=== PATIENT | female | born 1945 | race Two or more races ===

== ENCOUNTER 2020-03-24 09:47 | Inpatient (IN) | payer OTHER ==
[~2020-03-24] VITALS: Ht 160 cm; Wt 106.3 kg
[2020-03-24 10:41] LABS: Basophils # (auto) 0.1 10 ^3/uL (0-0.2); Basophils % (auto) 0.7 % (0.0-2.0); Eosinophils # (auto) 0.1 10 ^3/uL (0-0.8); Eosinophils % (auto) 0.6 % (0.0-7.0); Hematocrit 30.8 % (36.0-46.0); Lymphocytes # (auto) 3.8 10 ^3/uL (0.4-5.4); Lymphocytes % (auto) 36.7 % (10.0-50.0); Mean Corpuscular Hemoglobin 30.1 pg (28.0-32.0); Mean Corpuscular Hgb Conc. 32.4 g/dL (32.0-36.0); Monocytes # (auto) 0.3 10 ^3/uL (0-1.3); Monocytes % (auto) 2.5 % (0.0-12.0); Neutrophils # (auto) 6.2 10 ^3/uL (1.6-8.6); Neutrophils % (auto) 59.5 % (37.0-80.0); Nucleated Red Blood Cells % 0.8 %; Red Blood Cells 3.32 10^6/uL (4.0-5.20); Red Cell Distribution Width 14.9 % (11.8-14.3); White Blood Cell 10.4 10^3/uL (4.4-10.8)
[2020-03-24] MEDS ORDERED: SODIUM BICARBONATE 8.4% INJ 50ML SYRINGE ONE (10:54)
[2020-03-24 11:36] LABS: BUN/Creatinine Ratio 11.9; Calcium 7.3 mg/dL (8.5-10.1); Potassium 3.9 mmol/L (3.5-5.1)
[2020-03-24 11:53] LABS: Magnesium 2.2 mg/dL (1.6-2.6)
[2020-03-24] MEDS ORDERED: MIDAZOLAM DRIP 50 mg/50mL 50 ML IV ONE ×2 (12:23→12:28)
[2020-03-24] MEDS ORDERED: fentaNYL Drip 2500mCg/250mlNS 250 ML IV ONE (12:28)
[2020-03-24] MEDS: NOREPINEPHRINE 8 MG/250ML KIT 250 ML IV SCH (12:45)
[2020-03-24] MEDS: fentaNYL Drip 2500mCg/250mlNS 250 ML IV SCH (12:45)
[2020-03-24] MEDS: MIDAZOLAM DRIP 50 mg/50mL 50 ML IV SCH ×2 (12:45→15:00)
[2020-03-24] MEDS ORDERED: CEFEPIME 2 GM in SODIUM CHL 0.9% 50 ML IV ONE (13:30)
[2020-03-24] MEDS ORDERED: SODIUM CHLORIDE 0.9% 2,000 ML IV ONE (13:30)
[2020-03-24] MEDS ORDERED: CALCIUM GLUC 4.65meq/50ml D5AE 50 ML IV ONE (13:30)
[2020-03-24] MEDS ORDERED: InsuLIN REG 1unit/0.01ml Soln (100units/ml) IV ONE ×3 (13:30→18:00)
[2020-03-24] MEDS ORDERED: AZITHROMYCIN 500MG/ 250ML 250 ML IV ONE (13:30)
[2020-03-24 13:36] VITALS: BP 119/34
[2020-03-24 13:49] LABS: INR 1.18 (0.9-1.15); Partial Thromboplastin Time 27.1 sec (23.0-31.2)
[2020-03-24] MEDS ORDERED: SODIUM BICARB 50ML SYR 50 ML in SODIUM CHLORIDE 0.9% 1,000 ML IV ONE (14:30)
[2020-03-24 14:46] LABS: Lactic Acid w/Reflex 2.7 mmol/L (0.4-2.0)
[2020-03-24] MEDS: ACCU-CHEK COMFORT CURVE STRIP VI SCH ×7 (16:33→23:40)
[2020-03-24] MEDS ORDERED: MORPHINE SULFATE INJECTION 2 MG/ML SYRG IV PRN ×2 (17:00→18:30)
[2020-03-24] MEDS ORDERED: NITROGLYCERIN 0.4 MG SL TAB SL PRN (17:00)
[2020-03-24 18:20] VITALS: BP 113/43
[2020-03-24] MEDS ORDERED: DEXTROSE (50%) 50ML SYRG IV PRN ×2 (18:30)
[2020-03-24] MEDS ORDERED: REMDESIVIR PER PHARMACY 0 ML IV SCH (18:30)
[2020-03-24] MEDS ORDERED: diphenhdrAMINE HCL 50 MG/1 ML VL IV PRN (18:30)
[2020-03-24] MEDS: SODIUM CHLORIDE 0.9% 1,000 ML IV SCH (18:30)
[2020-03-24] MEDS ORDERED: PROMETHAZINE HCL 25 MG/ML 1ML IV PRN (18:30)
[2020-03-24] MEDS ORDERED: ALBUTEROL SULF HFA 90MCG INH 200DOSE IN PRN (18:30)
[2020-03-24] MEDS ORDERED: levoFLOXacin 500MG 100 ML IV ONE (20:30)
[2020-03-24] MEDS ORDERED: ACETAMINOPHEN 650 MG RECT SUPP PR PRN ×2 (21:15→22:45)
[2020-03-24 21:59] LABS: Lactic Acid w/Reflex 3.1 mmol/L (0.4-2.0)
[2020-03-24] MEDS: ENOXAPARIN SOD 40 MG/0.4 ML SYRINGE SC SCH (22:00)
[2020-03-24] MEDS ORDERED: BUDESONIDE (INHALATION) 180 MCG IH IN SCH (22:00)
[2020-03-24] MEDS ORDERED: InsuLIN REG 1unit/0.01ml Soln (100units/ml) SC SCH (22:00)
[2020-03-24] MEDS ORDERED: ENOXAPARIN SOD 40 MG/0.4 ML SYRINGE SC SCH (22:00)
[2020-03-24] MEDS: CLINDAMYCIN 600MG IV 50 ML IV SCH (22:14)
[2020-03-24] MEDS: INSULIN LANTUS (GLARGINE) 1 /0.01ml (100units/ml) SC SCH (22:22)
[2020-03-24 22:50] VITALS: BP 140/57
[2020-03-24 22:55] LABS: Urine Bacteria NONE SEEN /hpf (None Seen); Urine Blood TRACE /uL (Negative); Urine Specific Gravity 1.014 (1.001-1.035); Urine WBC 1 /hpf (0 - 5)
[2020-03-24] MEDS: FAMOTIDINE (10MG/ML) 2ML VL IV SCH (23:23)
[2020-03-24] MEDS: InsuLIN REG 1unit/0.01ml Soln (100units/ml) SC SCH (23:41)
[2020-03-25] VITALS (77 sets, daily range): BP systolic 68–172; BP diastolic 30–69
[2020-03-25] MEDS: SODIUM CHLORIDE 0.9% 1,000 ML IV SCH ×3 (02:30→18:30)
[2020-03-25] MEDS: MIDAZOLAM DRIP 50 mg/50mL 50 ML IV SCH ×2 (04:10→10:25)
[2020-03-25] MEDS: NOREPINEPHRINE 8 MG/250ML KIT 250 ML IV SCH ×2 (04:10→20:15)
[2020-03-25] MEDS: CLINDAMYCIN 600MG IV 50 ML IV SCH ×3 (05:47→22:35)
[2020-03-25] MEDS: InsuLIN REG 1unit/0.01ml Soln (100units/ml) SC SCH ×3 (05:47→18:00)
[2020-03-25] MEDS: INSULIN LANTUS (GLARGINE) 1 /0.01ml (100units/ml) SC SCH ×2 (05:48→22:57)
[2020-03-25] MEDS: ACCU-CHEK COMFORT CURVE STRIP VI SCH ×3 (05:48→18:00)
[2020-03-25 07:15] LABS: Albumin 2.2 g/dL (3.4-5.0); Calcium 7.7 mg/dL (8.5-10.1); Potassium 4.4 mmol/L (3.5-5.1)
[2020-03-25 07:18] LABS: BUN/Creatinine Ratio 13.3
[2020-03-25 07:23] LABS: Bilirubin, Total 0.7 mg/dL (0.2-1.0); Total Protein 5.7 g/dL (6.4-8.2)
[2020-03-25] MEDS: AZITHROMYCIN 500MG/ 250ML 250 ML IV SCH (10:00)
[2020-03-25] MEDS ORDERED: PANTOPRAZOLE 40 MG/10 ML VIAL INJ IV SCH (10:00)
[2020-03-25] MEDS ORDERED: DexAMETHasone SOD PHOS 10MG/1ML VIAL INJ IV SCH (10:00)
[2020-03-25 10:03] LABS: Basophils # (auto) 0 10 ^3/uL (0-0.2); Basophils % (auto) 0.1 % (0.0-2.0); Eosinophils # (auto) 0 10 ^3/uL (0-0.8); Eosinophils % (auto) 0.1 % (0.0-7.0); Hematocrit 29.4 % (36.0-46.0); Hemoglobin 9.7 g/dL (12.2-16.2); Lymphocytes % (auto) 6.7 % (10.0-50.0); Mean Corpuscular Hemoglobin 29.3 pg (28.0-32.0); Mean Corpuscular Volume 88.9 fL (80.0-100.0); Monocytes # (auto) 0.7 10 ^3/uL (0-1.3); Monocytes % (auto) 4.7 % (0.0-12.0); Neutrophils # (auto) 12.8 10 ^3/uL (1.6-8.6); Neutrophils % (auto) 88.4 % (37.0-80.0); Nucleated Red Blood Cells % 0.1 %; Red Blood Cells 3.31 10^6/uL (4.0-5.20); Red Cell Distribution Width 14.5 % (11.8-14.3); White Blood Cell 14.5 10^3/uL (4.4-10.8)
[2020-03-25] MEDS: FAMOTIDINE (10MG/ML) 2ML VL IV SCH ×2 (11:02→22:35)
[2020-03-25] MEDS: levoFLOXacin 250MG 50 ML IV SCH (11:02)
[2020-03-25] MEDS: ASPirin 81 mg TAB NG SCH (11:03)
[2020-03-25] MEDS: ZINC SULFATE 220mg CAP or TAB PO SCH (11:04)
[2020-03-25] MEDS: ASCORBIC ACID 1,000 MG TAB PO SCH (11:04)
[2020-03-25] MEDS: CHOLECALCIFEROL (VITD3) 2,000 UNIT CAP/TAB PO SCH (11:04)
[2020-03-25] MEDS: ENOXAPARIN SOD 40 MG/0.4 ML SYRINGE SC SCH ×2 (12:00→22:36)
[2020-03-25] MEDS: fentaNYL Drip 2500mCg/250mlNS 250 ML IV SCH (12:45)
[2020-03-26] VITALS (72 sets, daily range): BP systolic 130–178; BP diastolic 36–58
[2020-03-26] MEDS: ACCU-CHEK COMFORT CURVE STRIP VI SCH ×4 (00:12→18:20)
[2020-03-26] MEDS: InsuLIN REG 1unit/0.01ml Soln (100units/ml) SC SCH ×4 (00:35→18:38)
[2020-03-26] MEDS: SODIUM CHLORIDE 0.9% 1,000 ML IV SCH ×3 (02:30→22:50)
[2020-03-26 04:47] LABS: Basophils # (auto) 0 10 ^3/uL (0-0.2); Basophils % (auto) 0.2 % (0.0-2.0); Eosinophils # (auto) 0 10 ^3/uL (0-0.8); Hematocrit 28.6 % (36.0-46.0); Hemoglobin 9.5 g/dL (12.2-16.2); Lymphocytes # (auto) 0.4 10 ^3/uL (0.4-5.4); Lymphocytes % (auto) 4.2 % (10.0-50.0); Mean Corpuscular Hemoglobin 30.3 pg (28.0-32.0); Mean Corpuscular Hgb Conc. 33.4 g/dL (32.0-36.0); Mean Corpuscular Volume 90.8 fL (80.0-100.0); Monocytes # (auto) 0.4 10 ^3/uL (0-1.3); Monocytes % (auto) 3.6 % (0.0-12.0); Neutrophils # (auto) 9.7 10 ^3/uL (1.6-8.6); Nucleated Red Blood Cells % 0.2 %; Red Blood Cells 3.15 10^6/uL (4.0-5.20); Red Cell Distribution Width 14.7 % (11.8-14.3); White Blood Cell 10.6 10^3/uL (4.4-10.8)
[2020-03-26] MEDS: CLINDAMYCIN 600MG IV 50 ML IV SCH ×3 (05:40→22:16)
[2020-03-26] MEDS: INSULIN LANTUS (GLARGINE) 1 /0.01ml (100units/ml) SC SCH ×2 (06:00→22:17)
[2020-03-26] MEDS: MIDAZOLAM DRIP 50 mg/50mL 50 ML IV SCH ×3 (07:28→23:49)
[2020-03-26] MEDS: fentaNYL Drip 2500mCg/250mlNS 250 ML IV SCH (07:34)
[2020-03-26 08:07] LABS: Potassium 4.3 mmol/L (3.5-5.1)
[2020-03-26 08:43] LABS: Albumin 2.1 g/dL (3.4-5.0); BUN/Creatinine Ratio 14.4; Calcium 7.8 mg/dL (8.5-10.1); Magnesium 1.7 mg/dL (1.6-2.6)
[2020-03-26 08:45] LABS: Bilirubin, Total 0.5 mg/dL (0.2-1.0); INR 1.17 (0.9-1.15); Partial Thromboplastin Time 41.6 sec (23.0-31.2); Total Protein 5.8 g/dL (6.4-8.2)
[2020-03-26] MEDS: levoFLOXacin 250MG 50 ML IV SCH (09:29)
[2020-03-26] MEDS: CHOLECALCIFEROL (VITD3) 2,000 UNIT CAP/TAB PO SCH (10:00)
[2020-03-26] MEDS ORDERED: ENOXAPARIN SOD 100 MG/1 ML SYRINGE SC SCH (10:00)
[2020-03-26] MEDS: FAMOTIDINE (10MG/ML) 2ML VL IV SCH ×2 (11:00→22:00)
[2020-03-26] MEDS: AZITHROMYCIN 500MG/ 250ML 250 ML IV SCH (11:01)
[2020-03-26] MEDS: ZINC SULFATE 220mg CAP or TAB PO SCH (11:03)
[2020-03-26] MEDS: ASPirin 81 mg TAB NG SCH (11:39)
[2020-03-26] MEDS: ASCORBIC ACID 1,000 MG TAB PO SCH (14:09)
[2020-03-26 19:48] LABS: Creatinine, Urine 58 mg/dL (30.0-125.0); Sodium Urine 94 mmol/L (40-220); Urine Bacteria FEW /hpf (None Seen); Urine Blood 1+ /uL (Negative); Urine Budding Yeast MANY /hpf (None Seen); Urine Mucus FEW (None Seen); Urine Specific Gravity 1.016 (1.001-1.035); Urine WBC 20 /hpf (0 - 5)
[2020-03-26] MEDS: NOREPINEPHRINE 8 MG/250ML KIT 250 ML IV SCH (20:15)
[2020-03-27] VITALS (73 sets, daily range): BP systolic 128–167; BP diastolic 38–61
[2020-03-27] MEDS: MIDAZOLAM DRIP 50 mg/50mL 50 ML IV SCH ×4 (00:51→09:28)
[2020-03-27 04:56] LABS: Basophils # (auto) 0 10 ^3/uL (0-0.2); Basophils % (auto) 0.2 % (0.0-2.0); Eosinophils # (auto) 0 10 ^3/uL (0-0.8); Eosinophils % (auto) 0.1 % (0.0-7.0); Hematocrit 25.6 % (36.0-46.0); Hemoglobin 8.7 g/dL (12.2-16.2); Lymphocytes # (auto) 0.8 10 ^3/uL (0.4-5.4); Lymphocytes % (auto) 7.7 % (10.0-50.0); Mean Corpuscular Hemoglobin 29.8 pg (28.0-32.0); Mean Corpuscular Hgb Conc. 33.9 g/dL (32.0-36.0); Mean Corpuscular Volume 87.9 fL (80.0-100.0); Monocytes # (auto) 0.4 10 ^3/uL (0-1.3); Monocytes % (auto) 4.2 % (0.0-12.0); Neutrophils # (auto) 9.1 10 ^3/uL (1.6-8.6); Neutrophils % (auto) 87.8 % (37.0-80.0); Red Blood Cells 2.91 10^6/uL (4.0-5.20); Red Cell Distribution Width 14.9 % (11.8-14.3); White Blood Cell 10.3 10^3/uL (4.4-10.8)
[2020-03-27 05:18] LABS: Albumin 1.8 g/dL (3.4-5.0); Calcium 7.8 mg/dL (8.5-10.1); Magnesium 1.6 mg/dL (1.6-2.6); Potassium 3.9 mmol/L (3.5-5.1)
[2020-03-27 05:25] LABS: BUN/Creatinine Ratio 19.2; Bilirubin, Total 0.6 mg/dL (0.2-1.0); Cholesterol 121 mg/dL (< 200); HDL Cholesterol 29 mg/dL (40-59); INR 1.12 (0.9-1.15); LDL Cholesterol 72 mg/dL (< 100); Partial Thromboplastin Time 37.7 sec (23.0-31.2); Total Protein 5.3 g/dL (6.4-8.2); Triglycerides 173 mg/dL (< 150)
[2020-03-27] MEDS: CLINDAMYCIN 600MG IV 50 ML IV SCH ×3 (06:00→22:00)
[2020-03-27] MEDS: ACCU-CHEK COMFORT CURVE STRIP VI SCH ×4 (06:00→17:54)
[2020-03-27] MEDS: InsuLIN REG 1unit/0.01ml Soln (100units/ml) SC SCH ×4 (06:00→18:02)
[2020-03-27] MEDS: INSULIN LANTUS (GLARGINE) 1 /0.01ml (100units/ml) SC SCH ×2 (07:04→22:00)
[2020-03-27] MEDS: AZITHROMYCIN 500MG/ 250ML 250 ML IV SCH (09:27)
[2020-03-27] MEDS: FAMOTIDINE (10MG/ML) 2ML VL IV SCH ×2 (10:17→22:00)
[2020-03-27] MEDS: levoFLOXacin 250MG 50 ML IV SCH (10:17)
[2020-03-27] MEDS: DexAMETHasone SOD PHOS 10MG/1ML VIAL INJ IV SCH (10:17)
[2020-03-27] MEDS: ASPirin 81 mg TAB NG SCH (10:17)
[2020-03-27] MEDS: CHOLECALCIFEROL (VITD3) 2,000 UNIT CAP/TAB PO SCH (10:18)
[2020-03-27] MEDS: ASCORBIC ACID 1,000 MG TAB PO SCH (10:18)
[2020-03-27] MEDS: ZINC SULFATE 220mg CAP or TAB PO SCH (10:18)
[2020-03-27] MEDS: DOXYCYCLINE 100MG/250ML 250 ML IV SCH ×2 (12:09→22:45)
[2020-03-27] MEDS: SODIUM CHLORIDE 0.9% 1,000 ML IV SCH (12:10)
[2020-03-27] MEDS: fentaNYL Drip 2500mCg/250mlNS 250 ML IV SCH (12:45)
[2020-03-27] MEDS: NOREPINEPHRINE 8 MG/250ML KIT 250 ML IV SCH (20:15)
[2020-03-28] VITALS (89 sets, daily range): BP systolic 133–183; BP diastolic 36–62
[2020-03-28] MEDS: SODIUM CHLORIDE 0.9% 1,000 ML IV SCH ×2 (01:30→14:50)
[2020-03-28 04:49] LABS: Basophils # (auto) 0 10 ^3/uL (0-0.2); Basophils % (auto) 0.2 % (0.0-2.0); Eosinophils # (auto) 0 10 ^3/uL (0-0.8); Hematocrit 21.7 % (36.0-46.0); Hemoglobin 7.4 g/dL (12.2-16.2); Lymphocytes # (auto) 0.9 10 ^3/uL (0.4-5.4); Lymphocytes % (auto) 11.7 % (10.0-50.0); Mean Corpuscular Hemoglobin 30.1 pg (28.0-32.0); Mean Corpuscular Hgb Conc. 34.1 g/dL (32.0-36.0); Mean Corpuscular Volume 88.2 fL (80.0-100.0); Monocytes # (auto) 0.6 10 ^3/uL (0-1.3); Monocytes % (auto) 7.1 % (0.0-12.0); Neutrophils # (auto) 6.5 10 ^3/uL (1.6-8.6); Nucleated Red Blood Cells % 0.3 %; Red Blood Cells 2.46 10^6/uL (4.0-5.20); Red Cell Distribution Width 14.9 % (11.8-14.3); White Blood Cell 8.1 10^3/uL (4.4-10.8)
[2020-03-28 05:11] LABS: BUN/Creatinine Ratio 20.5; Calcium 7.3 mg/dL (8.5-10.1); Magnesium 1.4 mg/dL (1.6-2.6)
[2020-03-28] MEDS: InsuLIN REG 1unit/0.01ml Soln (100units/ml) SC SCH ×4 (06:00→18:00)
[2020-03-28] MEDS: ACCU-CHEK COMFORT CURVE STRIP VI SCH ×4 (06:19→18:00)
[2020-03-28] MEDS: CLINDAMYCIN 600MG IV 50 ML IV SCH ×3 (06:19→22:00)
[2020-03-28] MEDS: INSULIN LANTUS (GLARGINE) 1 /0.01ml (100units/ml) SC SCH ×2 (07:00→22:00)
[2020-03-28] MEDS: fentaNYL Drip 2500mCg/250mlNS 250 ML IV SCH (08:00)
[2020-03-28] MEDS: FAMOTIDINE (10MG/ML) 2ML VL IV SCH ×2 (10:07→22:00)
[2020-03-28] MEDS: DexAMETHasone SOD PHOS 10MG/1ML VIAL INJ IV SCH (10:07)
[2020-03-28] MEDS: ASPirin 81 mg TAB NG SCH (10:07)
[2020-03-28] MEDS: ZINC SULFATE 220mg CAP or TAB PO SCH (10:07)
[2020-03-28] MEDS: CHOLECALCIFEROL (VITD3) 2,000 UNIT CAP/TAB PO SCH (10:08)
[2020-03-28] MEDS: DOXYCYCLINE 100MG/250ML 250 ML IV SCH ×2 (10:08→22:45)
[2020-03-28] MEDS: ASCORBIC ACID 1,000 MG TAB PO SCH (10:08)
[2020-03-28] MEDS: MIDAZOLAM DRIP 50 mg/50mL 50 ML IV SCH ×3 (10:15→18:51)
[2020-03-28] MEDS: NOREPINEPHRINE 8 MG/250ML KIT 250 ML IV SCH (20:15)
[2020-03-29] VITALS (76 sets, daily range): BP systolic 132–186; BP diastolic 37–65
[2020-03-29] MEDS: MIDAZOLAM DRIP 50 mg/50mL 50 ML IV SCH (02:51)
[2020-03-29] MEDS: SODIUM CHLORIDE 0.9% 1,000 ML IV SCH ×2 (04:10→17:30)
[2020-03-29] MEDS: CLINDAMYCIN 600MG IV 50 ML IV SCH ×3 (05:26→22:00)
[2020-03-29 05:51] LABS: Hemoglobin 7.3 g/dL (12.2-16.2)
[2020-03-29 05:53] LABS: Hematocrit 21.1 % (36.0-46.0); Mean Corpuscular Hemoglobin 30.2 pg (28.0-32.0); Mean Corpuscular Hgb Conc. 34.7 g/dL (32.0-36.0); Mean Corpuscular Volume 86.9 fL (80.0-100.0); Red Blood Cells 2.43 10^6/uL (4.0-5.20); Red Cell Distribution Width 14.3 % (11.8-14.3); White Blood Cell 7.7 10^3/uL (4.4-10.8)
[2020-03-29 05:59] LABS: BUN/Creatinine Ratio 25.6; Calcium 7.7 mg/dL (8.5-10.1); Magnesium 1.4 mg/dL (1.6-2.6); Potassium 3.9 mmol/L (3.5-5.1)
[2020-03-29] MEDS: InsuLIN REG 1unit/0.01ml Soln (100units/ml) SC SCH ×5 (06:00→22:34)
[2020-03-29] MEDS: ACCU-CHEK COMFORT CURVE STRIP VI SCH ×5 (06:00→23:04)
[2020-03-29 06:05] LABS: Basophils % (manual) 0 (0.0-2.0); Blast Cells 0; Eosinophils % (manual) 0 (0-7); Myelocytes % 0; Promyelocytes % 0; Reactive Lymphocytes 0
[2020-03-29 06:57] LABS: Band Neutrophils % (manual) 2; Metamyelocytes % 1
[2020-03-29 06:58] LABS: Lymphocytes % (manual) 18 (10.0-50.0); Monocytes % (manual) 6 (0-12)
[2020-03-29] MEDS: INSULIN LANTUS (GLARGINE) 1 /0.01ml (100units/ml) SC SCH ×2 (07:31→22:00)
[2020-03-29] MEDS: fentaNYL Drip 2500mCg/250mlNS 250 ML IV SCH (09:25)
[2020-03-29] MEDS: FAMOTIDINE (10MG/ML) 2ML VL IV SCH ×2 (09:26→22:21)
[2020-03-29] MEDS: DexAMETHasone SOD PHOS 10MG/1ML VIAL INJ IV SCH (09:26)
[2020-03-29] MEDS: ZINC SULFATE 220mg CAP or TAB PO SCH (09:27)
[2020-03-29] MEDS: ASPirin 81 mg TAB NG SCH (09:27)
[2020-03-29] MEDS: CHOLECALCIFEROL (VITD3) 2,000 UNIT CAP/TAB PO SCH (09:27)
[2020-03-29] MEDS ORDERED: hydrALAZINE HCL 20 MG/ML VL ONE (10:06)
[2020-03-29] MEDS ORDERED: hydrALAZINE HCL 20 MG/ML VL IV ONE (10:15)
[2020-03-29] MEDS: DOXYCYCLINE 100MG/250ML 250 ML IV SCH ×2 (11:14→22:41)
[2020-03-29] MEDS: ASCORBIC ACID 1,000 MG TAB PO SCH (13:00)
[2020-03-29] MEDS ORDERED: MAGNESIUM SULFATE 1GM/100ML 100 ML IV ONE (15:45)
[2020-03-29] MEDS: MAGNESIUM SULFATE 1GM/100ML 100 ML IV SCH ×2 (17:15→18:15)
[2020-03-29] MEDS ORDERED: hydrALAZINE HCL 20 MG/ML VL IV PRN (18:00)
[2020-03-29] MEDS: NOREPINEPHRINE 8 MG/250ML KIT 250 ML IV SCH (20:15)
[2020-03-30] VITALS (58 sets, daily range): BP systolic 110–179; BP diastolic 27–46
[2020-03-30 04:57] LABS: Basophils # (auto) 0 10 ^3/uL (0-0.2); Basophils % (auto) 0.1 % (0.0-2.0); Eosinophils # (auto) 0 10 ^3/uL (0-0.8); Eosinophils % (auto) 0.4 % (0.0-7.0); Hematocrit 22.4 % (36.0-46.0); Hemoglobin 7.6 g/dL (12.2-16.2); Lymphocytes # (auto) 1.2 10 ^3/uL (0.4-5.4); Mean Corpuscular Hemoglobin 29.8 pg (28.0-32.0); Mean Corpuscular Hgb Conc. 33.7 g/dL (32.0-36.0); Mean Corpuscular Volume 88.4 fL (80.0-100.0); Monocytes # (auto) 0.8 10 ^3/uL (0-1.3); Monocytes % (auto) 9.5 % (0.0-12.0); Neutrophils # (auto) 6.4 10 ^3/uL (1.6-8.6); Nucleated Red Blood Cells % 0.4 %; Red Blood Cells 2.54 10^6/uL (4.0-5.20); Red Cell Distribution Width 14.8 % (11.8-14.3); White Blood Cell 8.4 10^3/uL (4.4-10.8)
[2020-03-30 05:00] LABS: BUN/Creatinine Ratio 28.4; Calcium 7.7 mg/dL (8.5-10.1); Magnesium 1.9 mg/dL (1.6-2.6)
[2020-03-30] MEDS: CLINDAMYCIN 600MG IV 50 ML IV SCH ×3 (05:21→21:13)
[2020-03-30] MEDS: ACCU-CHEK COMFORT CURVE STRIP VI SCH ×4 (05:22→23:48)
[2020-03-30] MEDS: InsuLIN REG 1unit/0.01ml Soln (100units/ml) SC SCH ×4 (06:29→21:25)
[2020-03-30] MEDS: INSULIN LANTUS (GLARGINE) 1 /0.01ml (100units/ml) SC SCH ×2 (06:30→21:26)
[2020-03-30] MEDS: SODIUM CHLORIDE 0.9% 1,000 ML IV SCH (07:46)
[2020-03-30] MEDS: DOXYCYCLINE 100MG/250ML 250 ML IV SCH ×2 (09:07→23:47)
[2020-03-30] MEDS: DexAMETHasone SOD PHOS 10MG/1ML VIAL INJ IV SCH (09:07)
[2020-03-30] MEDS: ASPirin 81 mg TAB NG SCH (09:07)
[2020-03-30] MEDS: ASCORBIC ACID 1,000 MG TAB PO SCH (09:07)
[2020-03-30] MEDS: CHOLECALCIFEROL (VITD3) 2,000 UNIT CAP/TAB PO SCH (09:07)
[2020-03-30] MEDS: FAMOTIDINE (10MG/ML) 2ML VL IV SCH ×2 (09:07→21:15)
[2020-03-30] MEDS: ZINC SULFATE 220mg CAP or TAB PO SCH (09:07)
[2020-03-30] MEDS: hydrALAZINE HCL 20 MG/ML VL IV PRN (10:10)
[2020-03-30] MEDS ORDERED: Glucerna 1.2 Cal 1Liter BOTTLE GT SCH (10:15)
[2020-03-30] MEDS: fentaNYL Drip 2500mCg/250mlNS 250 ML IV SCH (11:08)
[2020-03-30] MEDS: MIDAZOLAM DRIP 50 mg/50mL 50 ML IV SCH (11:09)
[2020-03-30] MEDS: NOREPINEPHRINE 8 MG/250ML KIT 250 ML IV SCH (20:15)
[2020-03-31] VITALS (62 sets, daily range): BP systolic 104–188; BP diastolic 31–59
[2020-03-31 05:25] LABS: Hematocrit 25.2 % (36.0-46.0); Hemoglobin 8.6 g/dL (12.2-16.2); Mean Corpuscular Hemoglobin 29.7 pg (28.0-32.0); Mean Corpuscular Hgb Conc. 34.1 g/dL (32.0-36.0); Red Cell Distribution Width 14.8 % (11.8-14.3); White Blood Cell 10.3 10^3/uL (4.4-10.8)
[2020-03-31 05:34] LABS: Basophils % (manual) 0 (0.0-2.0); Blast Cells 0; Eosinophils % (manual) 0 (0-7); Metamyelocytes % 0; Myelocytes % 0; Promyelocytes % 0; Reactive Lymphocytes 0
[2020-03-31 05:46] LABS: Potassium 4.2 mmol/L (3.5-5.1)
[2020-03-31] MEDS: CLINDAMYCIN 600MG IV 50 ML IV SCH ×3 (05:52→21:45)
[2020-03-31] MEDS: ACCU-CHEK COMFORT CURVE STRIP VI SCH ×4 (05:53→23:08)
[2020-03-31] MEDS: INSULIN LANTUS (GLARGINE) 1 /0.01ml (100units/ml) SC SCH ×2 (05:54→21:59)
[2020-03-31 05:56] LABS: BUN/Creatinine Ratio 32.7; Calcium 8.1 mg/dL (8.5-10.1); Magnesium 1.7 mg/dL (1.6-2.6)
[2020-03-31] MEDS: InsuLIN REG 1unit/0.01ml Soln (100units/ml) SC SCH ×4 (05:56→23:00)
[2020-03-31 06:35] LABS: Band Neutrophils % (manual) 1; Lymphocytes % (manual) 10 (10.0-50.0); Monocytes % (manual) 10 (0-12)
[2020-03-31] MEDS: ASPirin 81 mg TAB NG SCH (10:00)
[2020-03-31] MEDS: FAMOTIDINE (10MG/ML) 2ML VL IV SCH ×2 (10:00→21:59)
[2020-03-31] MEDS: DexAMETHasone SOD PHOS 10MG/1ML VIAL INJ IV SCH (10:00)
[2020-03-31] MEDS: ASCORBIC ACID 1,000 MG TAB PO SCH (10:00)
[2020-03-31] MEDS: CHOLECALCIFEROL (VITD3) 2,000 UNIT CAP/TAB PO SCH (10:00)
[2020-03-31] MEDS: ZINC SULFATE 220mg CAP or TAB PO SCH (10:00)
[2020-03-31] MEDS: DOXYCYCLINE 100MG/250ML 250 ML IV SCH ×2 (10:52→23:04)
[2020-03-31] MEDS: fentaNYL Drip 2500mCg/250mlNS 250 ML IV SCH (12:45)
[2020-03-31] MEDS: MIDAZOLAM DRIP 50 mg/50mL 50 ML IV SCH (12:45)
[2020-03-31] MEDS: hydrALAZINE HCL 20 MG/ML VL IV PRN (18:31)
[2020-03-31] MEDS: NOREPINEPHRINE 8 MG/250ML KIT 250 ML IV SCH (20:15)
[2020-04-01] VITALS (47 sets, daily range): BP systolic 114–194; BP diastolic 33–73
[2020-04-01] MEDS: CLINDAMYCIN 600MG IV 50 ML IV SCH ×3 (05:01→23:06)
[2020-04-01 05:20] LABS: Hematocrit 24.8 % (36.0-46.0); Hemoglobin 8.5 g/dL (12.2-16.2); Mean Corpuscular Hemoglobin 29.9 pg (28.0-32.0); Mean Corpuscular Hgb Conc. 34.1 g/dL (32.0-36.0); Mean Corpuscular Volume 87.6 fL (80.0-100.0); Red Blood Cells 2.84 10^6/uL (4.0-5.20); Red Cell Distribution Width 15.1 % (11.8-14.3); White Blood Cell 10.4 10^3/uL (4.4-10.8)
[2020-04-01 05:34] LABS: Calcium 8.1 mg/dL (8.5-10.1); Magnesium 1.6 mg/dL (1.6-2.6); Potassium 3.7 mmol/L (3.5-5.1)
[2020-04-01 05:48] LABS: Band Neutrophils % (manual) 0; Basophils % (manual) 0 (0.0-2.0); Blast Cells 0; Eosinophils % (manual) 0 (0-7); Metamyelocytes % 0; Promyelocytes % 0; Reactive Lymphocytes 0
[2020-04-01] MEDS: InsuLIN REG 1unit/0.01ml Soln (100units/ml) SC SCH ×3 (05:53→18:00)
[2020-04-01] MEDS: INSULIN LANTUS (GLARGINE) 1 /0.01ml (100units/ml) SC SCH ×2 (05:54→23:37)
[2020-04-01] MEDS: ACCU-CHEK COMFORT CURVE STRIP VI SCH ×3 (05:54→18:00)
[2020-04-01] MEDS: hydrALAZINE HCL 20 MG/ML VL IV PRN ×2 (06:22→13:22)
[2020-04-01 07:07] LABS: Lymphocytes % (manual) 10 (10.0-50.0); Monocytes % (manual) 5 (0-12); Myelocytes % 1
[2020-04-01] MEDS: FAMOTIDINE (10MG/ML) 2ML VL IV SCH ×2 (09:30→23:06)
[2020-04-01] MEDS: ZINC SULFATE 220mg CAP or TAB PO SCH (09:30)
[2020-04-01] MEDS: DexAMETHasone SOD PHOS 10MG/1ML VIAL INJ IV SCH (09:30)
[2020-04-01] MEDS: ASCORBIC ACID 1,000 MG TAB PO SCH (09:30)
[2020-04-01] MEDS: CHOLECALCIFEROL (VITD3) 2,000 UNIT CAP/TAB PO SCH (09:30)
[2020-04-01] MEDS: ASPirin 81 mg TAB NG SCH (09:30)
[2020-04-01] MEDS: DOXYCYCLINE 100MG/250ML 250 ML IV SCH (11:00)
[2020-04-01] MEDS: NOREPINEPHRINE 8 MG/250ML KIT 250 ML IV SCH (20:15)
[2020-04-02] VITALS (26 sets, daily range): BP systolic 113–203; BP diastolic 30–76
[2020-04-02] MEDS: DOXYCYCLINE 100MG/250ML 250 ML IV SCH ×2 (00:35→10:22)
[2020-04-02] MEDS: ACCU-CHEK COMFORT CURVE STRIP VI SCH ×4 (01:30→17:38)
[2020-04-02] MEDS: InsuLIN REG 1unit/0.01ml Soln (100units/ml) SC SCH ×4 (01:46→18:18)
[2020-04-02] MEDS: hydrALAZINE HCL 20 MG/ML VL IV PRN ×2 (02:43→14:26)
[2020-04-02] MEDS: INSULIN LANTUS (GLARGINE) 1 /0.01ml (100units/ml) SC SCH ×2 (06:35→21:51)
[2020-04-02] MEDS: CLINDAMYCIN 600MG IV 50 ML IV SCH ×3 (06:50→22:58)
[2020-04-02] MEDS: DexAMETHasone SOD PHOS 10MG/1ML VIAL INJ IV SCH (10:22)
[2020-04-02] MEDS: ASCORBIC ACID 1,000 MG TAB PO SCH (10:22)
[2020-04-02] MEDS: CHOLECALCIFEROL (VITD3) 2,000 UNIT CAP/TAB PO SCH (10:22)
[2020-04-02] MEDS: ZINC SULFATE 220mg CAP or TAB PO SCH (10:22)
[2020-04-02] MEDS: FAMOTIDINE (10MG/ML) 2ML VL IV SCH ×2 (10:22→22:58)
[2020-04-02] MEDS: ASPirin 81 mg TAB NG SCH (10:22)
[2020-04-02] MEDS: NOREPINEPHRINE 8 MG/250ML KIT 250 ML IV SCH (20:15)
[2020-04-03] VITALS (25 sets, daily range): BP systolic 132–203; BP diastolic 35–73
[2020-04-03] MEDS: InsuLIN REG 1unit/0.01ml Soln (100units/ml) SC SCH ×2 (00:56→05:48)
[2020-04-03] MEDS: ACCU-CHEK COMFORT CURVE STRIP VI SCH ×2 (00:59→05:47)
[2020-04-03] MEDS: DOXYCYCLINE 100MG/250ML 250 ML IV SCH ×2 (00:59→10:21)
[2020-04-03] MEDS: CLINDAMYCIN 600MG IV 50 ML IV SCH (05:52)
[2020-04-03] MEDS: INSULIN LANTUS (GLARGINE) 1 /0.01ml (100units/ml) SC SCH (07:00)
[2020-04-03] MEDS: ZINC SULFATE 220mg CAP or TAB PO SCH (10:20)
[2020-04-03] MEDS: DexAMETHasone SOD PHOS 10MG/1ML VIAL INJ IV SCH (10:20)
[2020-04-03] MEDS: ASPirin 81 mg TAB NG SCH (10:20)
[2020-04-03] MEDS: FAMOTIDINE (10MG/ML) 2ML VL IV SCH (10:20)
[2020-04-03] MEDS: ASCORBIC ACID 1,000 MG TAB PO SCH (10:21)
[2020-04-03] MEDS: CHOLECALCIFEROL (VITD3) 2,000 UNIT CAP/TAB PO SCH (10:21)
[2020-04-03] MEDS ORDERED: amLODIPine BESYLATE 5 MG TAB PO ONE (10:45)
[2020-04-03] MEDS: MORPHINE SULFATE INJECTION 2 MG/ML SYRG IV PRN ×3 (14:41→21:13)
[2020-04-03] MEDS: LORazepam 2MG/ML-1ML VIAL IV PRN ×3 (14:42→21:13)
[2020-04-04] VITALS: BP 143/55
[2020-04-04] MEDS: LORazepam 2MG/ML-1ML VIAL IV PRN ×3 (07:15→22:39)
[2020-04-04] MEDS: MORPHINE SULFATE INJECTION 2 MG/ML SYRG IV PRN ×3 (07:15→22:39)
[2020-04-04 08:00] VITALS: BP 135/59
[2020-04-04] MEDS ORDERED: amLODIPine BESYLATE 5 MG TAB PO SCH (10:00)
[2020-04-04 16:00] VITALS: BP 174/90
[2020-04-05] VITALS: BP 158/77
[2020-04-05 08:00] VITALS: BP 119/47
[2020-04-05 10:56] VITALS: BP 119/97
[2020-04-05 12:03] VITALS: BP 119/47
== END 2020-04-05 14:14 | disposition hospice, home (50) | DRG 870 ==
LOC: ER 09:47 → EDBD 09:47 → EDAGE 09:47 → OVERFLOW 16:55 → ICU WEST 03-25 03:01 → WEST WING 04-03 23:42
PROVIDERS: ADMIT Internal Medicine; ATTEND Internal Medicine Geriatric Medicine
PROC: 5A1955Z Respiratory Ventilation, Greater than 96 Consecutive Hours (ICD-10-PCS; principal; 2020-03-24)
PROC: 0BH17EZ Insertion of Endotracheal Airway into Trachea, Via Natural or Artificial Opening (ICD-10-PCS; 2020-03-24)
PROC: 0D9670Z Drainage of Stomach with Drainage Device, Via Natural or Artificial Opening (ICD-10-PCS; 2020-03-24)
PROC: 5A12012 Performance of Cardiac Output, Single, Manual (ICD-10-PCS; 2020-03-24)
PROC: XW13325 Transfusion of Convalescent Plasma (Nonautologous) into Peripheral Vein, Percutaneous Approach, New Technology Group 5 (ICD-10-PCS; 2020-03-28)
PROC: 02HV33Z Insertion of Infusion Device into Superior Vena Cava, Percutaneous Approach (ICD-10-PCS; 2020-03-29)
DX: A41.89 Other specified sepsis (principal); E11.11 Type 2 diabetes mellitus with ketoacidosis with coma; I46.9 Cardiac arrest, cause unspecified; I21.4 Non-ST elevation (NSTEMI) myocardial infarction; J96.01 Acute respiratory failure with hypoxia; J12.82 Pneumonia due to coronavirus disease 2019; U07.1 COVID-19; I63.9 Cerebral infarction, unspecified; I50.31 Acute diastolic (congestive) heart failure; S22.39XA Fracture of one rib, unspecified side, initial encounter for closed fracture; Z68.42 Body mass index [BMI] 45.0-49.9, adult; C64.9 Malignant neoplasm of unspecified kidney, except renal pelvis; G93.1 Anoxic brain damage, not elsewhere classified; N17.9 Acute kidney failure, unspecified; I13.0 Hypertensive heart and chronic kidney disease with heart failure and stage 1 through stage 4 chronic kidney disease, or unspecified chronic kidney disease; E66.01 Morbid (severe) obesity due to excess calories; D64.9 Anemia, unspecified; N18.9 Chronic kidney disease, unspecified; Z51.5 Encounter for palliative care; Z66 Do not resuscitate; M54.5 Low back pain; G89.29 Other chronic pain; Z79.899 Other long term (current) drug therapy; E11.22 Type 2 diabetes mellitus with diabetic chronic kidney disease
CPT/HCPCS: 31500; 36415; 36600; 51702; 70450; 71045; 72192; 73560; 73600; 80048; 80053; 80061; 81001; 82010; 82550; 82570; 82805; 82962; 83036; 83605; 83735; 83880; 84300; 84443; 84484; 85007; 85025; 85027; 85379; 85610; 85730; 86850; 86900; 86901; 87040; 87070; 87081; 87205; 87426; 92950; 93005; 93306; 94002; 94003; 94640; 96365; 96366; 96367; 96368; 96375; 96376; 97163; 99291; A4618; G0378; J0610; J1100; J1815; J1956; J2250; J3490